=== PATIENT | female | born 2000 | race Caucasian/White ===

== ENCOUNTER 2024-08-31 19:24 | Emergency (ER) | payer SELFPAY ==
[2024-08-31 19:25] VITALS: BP 114/78; PULSE 103; RESP 16; TEMP 36.4; O2SAT 99
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
[2024-08-31 20:00] VITALS: BP 128/78; PULSE 85; RESP 18; O2SAT 99
== END 2024-08-31 20:00 | disposition home or self-care (01) ==
LOC: CHSED 19:56
PROVIDERS: Emergency Provider Family Medicine
DX: S09.90XA Unspecified injury of head, initial encounter (principal); W51.XXXA Accidental striking against or bumped into by another person, initial encounter
CPT/HCPCS: 99283

== ENCOUNTER 2025-02-13 22:40 | Emergency (ER) | payer SELFPAY ==
--- OUTSIDE RECORDS SUMMARY | 2025-02-13 22:43 | XMS_ITS | Clinical Summary ---
Author Organization [employer] [facility] Address [address] [place] [address] Care Team Providers Care Survey Project Manager Name Role Phone Unavailable Primary Care Provider Unavailabl e Source Comments [facility],non-owned Affiliates and Associated Physician Practices is amultiple site organization consisting of ambulatory clinics and hospital sitesin [place], [place], [place] and [place]. This disclosure is being madepursuant to the Care Everywhere program and may not contain all information available regarding this patient. Last updated [email or web address] Allergies Active Allergy Reactions Criticality Noted Date Comments Naproxen Vomiting Medium 10/14/2018 Sulfur Itching,Swelling 09/10/2021 Medications * This document contains information received from the source organization and may not represent a complete record from that organization. * Be aware that medications may not be up to date on this document. Alwaysverify current medications with the patient. hydrOXYzine HCl (ATARAX) 50 MG tablet Take 1 (one) tablet by mouth 2 times daily as needed (anxiety) 60 tablet 1 2 Active HYDROcodone-alex taminophen (Ironwood) 5-325 MG tablet Take 1 (one) tablet by mouth every 6 hours as needed for Pain 12 tablet 2 Active Additional Information Patient not taking.Reported on 01/13/2025 ondansetron (Zofran) 4 MG tablet Take 1 (one) tablet by mouth every 6 hours as needed for Nausea/Vomiting 10 tablet 2 Active chlorhexidine (Peridex) 0.12 % solution Swish and spit 2 times daily 473 mL 2 Active ketorolac (Toradol) 10 MG tablet Take 1 (one) tablet by mouth every 6 hours as needed for Pain 20 tablet 5 Active ondansetron, disintegrating, (Zofran ODT) 4 MG tablet Take 1 (one) tablet by mouth every 6 hours as needed for Nausea/Vomiting Allow tablet to dissolve on the tongue 20 tablet 5 Active venlafaxine XR 24hr (Effexor XR) 150 MG capsule Take 1 tablet by mouth daily. Will need appointment before additional refills allowed. 4 Active lamoTRIgine (LaMICtal) 100 MG tablet Take 1 (one) tablet by mouth 2 times daily Active hydrOXYzine HCl (Atarax) 50 MG tabletIndicatio ns:Anxiety Take 1 (one) tablet by mouth 2 times daily as needed (Anxiety) Reasons: Feeling Anxious 60 tablet 5 Active venlafaxine XR 24hr (Effexor XR) 150 MG capsule Take 1 (one) capsule by mouth once daily 30 capsule 5 Active busPIRone (Buspar) 5 MG tablet Take 1 (one) tablet by mouth 2 times daily Active mirtazapine (Remeron) 15 MG tablet Take 1 (one) tablet by mouth at bedtime Active propranolol (Inderal) 10 MG tabletIndicatio ns:Anxiety Take 1 (one) tablet by mouth once daily as needed Reasons: Feeling Anxious Active Active Problems Problem Noted Date Diagnosed Date Generalized anxiety disorder 09/10/2021 Recurrent major depressive disorder 09/10/2021 Resolved Problems Problem Noted Date Diagnosed Date Resolved Date Abdominal pain, right lower quadrant 04/27/2008 09/10/2021 Encounters Date Type Department Care Team Description 01/13/2025 12:25 PM CDT - 01/13/2025 5:44 PM CDT Emergency ER at [address] [address] Jai Donovan MD Schupack, Brett, DO Left foot pain; MDD (major depressive disorder), recurrent severe, 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 (F LUZONE; FLULAVAL; FLUARIX; AFLURIA QUADRIVALENT; 6MO+), 0.5 ML (IIV4) 09/10/2021 Family History Medical History Relation Name Comments Blood Clots Mother Relation Name Status Comments Brother Alive Father Alive Mother Alive Sister Alive Social History Tobacco Use Types Packs/Day Years Used Date Smoking Tobacco: Never Smokeless Tobacco: Never Alcohol Use Standard Drinks/Week Comments Yes 0 (1 standard drink = 0.6 oz pur e alcohol) AUDIT-C Answer Date Recorded Q1: How often do you have a drink containing alcohol? 4 or more times a week 01/13/2025 Q2: How many drinks containi ng alcohol do you have on a typical day when you are drinking? 3 or 4 Q3: How often do you have si x or more drinks on one occasion? 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 Gender Identity Not on file Sexual Orientation Not on file Last Filed Vital Signs Vital Sign Reading Time Taken Comments Blood Pressure 119/81 01/13/2025 12:19 PM CDT Pulse 75 01/13/2025 12:19 PM CDT Temperature 37.1 C (98.7 F) 01/13/2025 12:19 PM CDT Respiratory Rate 16 01/13/2025 12:19 PM CDT Oxygen Saturation 98% 01/13/2025 12:19 PM CDT Inhaled Oxygen Concentration 0% 04/28/2008 2 :45 AM CDT Weight 59 kg (130 lb) 01/13/2025 12:13 PM CDT Height 167.6 cm (5' 6) 01/13/2025 12:13 PM CDT Body Mass Index 20.98 01/13/2025 12:13 PM CDT Plan of Treatment Health Maintenance Due Date Last Done Comments HIV SCREENING 2013 HPV VACCINE (1 - 3-dose series) 2013 HEPATITIS C SCREENING 06/03/2016 DTAP/TDAP/TD VACCINES (1 - Tdap) 2017 HEPATITIS B VACCINE (1 of 3 - 19+ 3-dose series) 2017 COVID-19 VACCINE (2023-2 5 season) 2024 07/26/2021, 12/26/2020, 12/05/2020 INFLUENZA VACCINE (Season Ended) 2025 09/10/2021, 06/14/2008 PAP SMEAR 12/16/2025 12/16/2022 ZOSTER VACCINE (1 of 2) 2048 DEPRESSION SCREENING Completed 01/13/2025, 08/16/2022, 04/08/2022 HIB VACCINE Aged Out No longer eligi ble based on patient's age to complete this topic MENINGOCOCCAL (Group B) VACCINE SHARED DECISION-MAKING Aged Out No longer eligible based on patient's age to complete this topic MENINGOCOCCAL GROUPS A/C/Y/W VACCINE Aged Out No longer eligible b ased on patient's age to complete this topic PNEUMOCOCCAL VACCINE Aged Out No long er eligible based on patient's age to complete this topic Procedures Procedure Name Priority Date/Time Associated Diagnosis Comments XR FOOT LEFT 3VW OR MORE STAT 01/13/2025 12:58 PM CDT Left foot pain from Last 3 Months Results * XR Foot Left 3Vw or More (01/13/2025 12:58 PM CDT) Anatomical Region Laterality Modality Ankle / Foot Computed Radiogr aphy 01/13/2025 1:12 PM CDT Impressions 01/13/2025 1:13 PM CDT IMPRESSION: No fracture or malalignment. > Interpreting Provider: Robert Olivas MD on 01/13/2025 1:13 PM Narrative 01/13/2025 1:13 PM CDT PROCEDURE: XR FOOT LEFT 3VW OR MORE, DATE/TIME OF EXAM: 01/13/2025 12:58 PM, LOCATION [facility] INDICATION: M79.672: Pain in left foot ADDITIONAL CLINICAL INFORMATION: Ordering Provider Reason For Exam: Technologist Note: Additional: Twisting injury on trampoline, foot pain COMPARISON: None. FINDINGS: No metatarsal fracture. No phalanx fracture. The metatarsal phalangeal alignment is normal. The metatarsal midfoot bony structures are normal. No fifth proximal metatarsal fracture. No lateral calcaneal avulsion. Small peroneal longus ossicle. No ankle joint effusion. There is some soft tissue swelling over the dorsum of the foot midfoot but no fracture identified. Procedure Note Robert Olivas MD - 01/13/2025 PROCEDURE: XR FOOT LEFT 3VW OR MORE, DATE/TIME OF EXAM: 2:58 PM, LOCATION [facility] INDICATION: M79.672: Pain in left foot ADDITIONAL CLINICAL INFORMATION: Ordering Provider Reason For Exam: Technologist Note: Additional: Twisting injury on trampoline, foot pain COMPARISON: None. FINDINGS: No metatarsal fracture. No phalanx fracture. The metatarsal phalangeal alignment is normal. The metatarsal midfoot bony structuresare normal. No fifth proximal metatarsal fracture. No lateral calcaneal avulsion. Small peroneal longus ossicle. No ankle joint effusion. Thereis some soft tissue swelling over the dorsum of the foot midfoot but no fracture identified. IMPRESSION: No fracture or malalignment. > Interpreting Provider: Robert Olivas MD on 01/13/2025 1:13 PM Jai Donovan MD DIAGNOSTIC IMAGING ORDERABLES F inal Result from Last 3 Months Insurance (Home) [address] [place], [place] [id number] [facility] (Home) [address] [place] [phone] [place] MED[place] - [facility], [facility] [employer]TH
--- OUTSIDE RECORDS SUMMARY | 2025-02-13 22:43 | XMS_ITS | Clinical Summary ---
Author Organization [employer] [address] [place] [address] Address [address] [place] [address] Care Team Providers Care Tennis Desk Team Member Name Role Phone Tameka Worthy MD Primary Care Provider Allergies Active Allergy Reactions Criticality Noted Date Comments Naproxen Nausea and Vomiting Medium 10/14/2018 Sulfur Itching,Swelling Low 09/10/2021 Medications albuterol sulfate HFA 90 mcg/actuation aerosol inhalerIndicatio ns:Wheezing Take 2 Puffs by inhalation every 6 hours as needed for Shortness of Breath or Wheezing. 8.5 Gram 11 3 Active doxycycline hyclate (VIBRAMYCIN) 100 mg tabletIndication s:Hydradenitis Take 1 Tablet (100 mg) by mouth 2 times daily. 60 Tablet 1 3 Active ibuprofen (MOTRIN) 600 mg tabletIndication s:Dysmenorrhea Take 1 Tablet (600 mg) by mouth every 8 hours as needed for Pain, Mild. 180 Tablet 1 3 Active pantoprazole (PROTONIX) 20 mg Tablet, Delayed Release (E.C.)Indication s:Bipolar 1 disorder (CMS/HCC) Take 1 Tablet (20 mg) by mouth 2 times daily. 60 Tablet 3 3 Active mirtazapine (REMERON) 15 mg tabletIndication s:Sexual dysfunction in female Take 1 Tablet (15 mg) by mouth daily at bedtime. 30 Tablet 3 3 Active lamoTRIgine (LaMICtal) 100 mg tabletIndication s:Bipolar 1 disorder (CMS/HCC) Take 1 Tablet (100 mg) by mouth 2 times daily. Start after completing titration 60 Tablet 11 3 Active LORazepam (ATIVAN) 0.5 mg tabletIndication s:Bipolar 1 disorder (CMS/HCC) Take 1 Tablet (0.5 mg) by mouth 1 time daily as needed for Anxiety. 30 Tablet 3 Active venlafaxine (EFFEXOR XR) 150 mg Extended Release 24 hour capsuleIndicatio ns:Bipolar 1 disorder (CMS/HCC) Take 1 tablet by mouth daily. Will need appointment before additional refills allowed. 90 Capsule 4 Active Active Problems Problem Noted Date Diagnosed Date Bipolar 1 disorder 12/14/2022 Sexual dysfunction in female 12/14/2022 Wheezing 12/14/2022 Generalized anxiety disorder 09/10/2021 Recurrent major depressive disorder 09/10/2021 Immunizations Immunization Administration Dates Next Due (ACTHIB/HIBERIX)(2 MOS-5 YRS /6 WKS-4 YRS) HAEMOPHILUS INFLUENZAE TYPE B VACCINE (HIB), PRP-T CONJUGATE, 4 DOSE, 0.5 ML IM 09/23/1999,1998,1998 (DAPTACEL)(6 WKS-6 YRS) DIPH THERIA, TETANUS TOXOIDS, AND ACCELLULAR PERTUSSIS VACCINE (DTAP), 0.5ML, IM 10/24/1999,02/18/1999,1998,1998 (IPOL)(6 WKS AND UP) POLIOVI CARRIE VACCINE, INACTIVATED (IPV), 3 DOSE, SUBCUT OR IM 01/12/2006,09/23/1999,1998,1998 (M-M-R II/PRIORIX)(12 MO UP) MEASLES, MUMPS AND RUBELLA VIRUS VACCINE, 0.5 ML IM/SUBCUT 01/12/2006,09/23/1999 (PFIZER)(12 YR UP) COVID-19 VACCINE - EMERGENCY USE AUTHORIZATION, MRNA, [id number](PF) 30 MCG/0.3 ML IM SUSP 07/26/2021,12/26/2020,12/05/2020 (RECOMBIVAX HB/ENGERIX-B)(0- 19 YRS) HEPATITIS B VACCINE 5 MCG/0.5 ML OR 10 MCG/0.5 ML PED OR ADOL 3 DOSE (PF), IM 09/23/1999,1998,1998 (TDVAX)(7 YRS UP) TETANUS AN D DIPHTHERIA TOXOIDS, ADSORBED (2 LF OF TETANUS TOXOID AND 2 LF OF DIPHTHERIA TOXOID), 0.5ML (PF), IM 01/12/2006 (VARIVAX)(12 MOS UP)VARICELL A VIRUS VACCINE (PF) 0.5 ML, SUB CUT 05/11/2002 Hepatitis A Vaccine 01/12/2006 INFLUENZA VACCINE QUADRIVALE NT 6 MOS UP PF IM 09/10/2021 Influenza A (H1N1) Vaccine Nasal VFC 06/14/2008 Influenza Seasonal Unspecifi ed Formulation IM 09/10/2021 Influenza, Unspecified Formulation 06/14/2008 Family History Medical History Relation Name Comments Other Brother Blakina Cerebal Palsy Ovarian Cancer Maternal Grandmother Evelyn Singleton Uterine Cancer Maternal Grandmother Evelyn Singleton Bipolar Disorder Mother Lynne Villalobos Heart Disease Mother Lynne Villalobos heart attack Hemophilia Mother Lynne Villalobos Ovarian Cancer Mother Lynne Villalobos Relation Name Status Comments Brother Blakina Alive Father Alive Maternal Grandfather Maternal Grandmother Evelyn Singleton Alive Mother Lynne Villalobos Alive Paternal Grandfather Alive Paternal Grandmother Alive Sister Alive Social History Tobacco Use Types Packs/Day Years Used Date Smoking Tobacco: Former Cigarettes 0.5 4 0 08/30/2010 - 08/30/2014 Smokeless Tobacco: Never Tobacco Cessation:Counseling Given: Yes Alcohol Use Standard Drinks/Week Comments Yes 5 (1 standard drink = 0.6 oz pur e alcohol) less than once a month Comments No Sex and Gender Information Value Date Recorded Sex Assigned at Not on file 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 Gender Identity Not on file Sexual Orientation Not on file Last Filed Vital Signs Vital Sign Reading Time Taken Comments Blood Pressure 100/66 02/04/2023 10:09 AM CDT Pulse 74 02/04/2023 10:09 AM CDT Temperature 36.7 C (98.1 F) 05/27/2022 2:58 PM CDT Respiratory Rate 14 11/25/2022 4:49 PM CDT Oxygen Saturation 99% 02/04/2023 10:09 AM CDT Inhaled Oxygen Concentration - - Weight 57.2 kg (126 lb 3.2 oz) 02/04/2023 10:09 AM CDT Height 167.6 cm (5' 6) 02/04/2023 10:09 AM CDT Body Mass Index 20.37 02/04/2023 10:09 AM CDT Plan of Treatment Health Maintenance Due Date Last Done Comments DTAP/TDAP/TD VACCINES (6 - Tdap) 2009 01/12/2006, 10/24/1999, 02/18/1999, Additional history exists HPV VACCINES (1 - 3-dose series) 2013 INFLUENZA VACCINE (#1) 2024 09/10/2021, 2021 COVID-19 Vaccine (4 - 2023-2 5 season) 2024 07/26/2021, 12/26/2020, 12/05/2020 CERVICAL CANCER SCREENING 12/16/2025 PAP SMEAR 12/16/2025 12/16/2022 HPV/Cotest (21-29) 12/17/2027 12/16/2022 HPV/Cotest (30-65) 2028 12/16/2022 HEPATITIS B VACCINES Completed 09/23/1999, 1998, 1998 Procedures Procedure Name Priority Date/Time Associated Diagnosis Comments CERV/VAG CYTO SCREEN PAP W/HPV Routine 12/16/2022 12:00 AM CDT Cervical cancer screening from Last 3 Months or Most Recently Relevant to Health Maintenance Results * CERV/VAG CYTO SCREEN PAP W/HPV (12/16/2022 12:00 AM CDT) CLINICAL INFORMATION [facility] [place] Comment:None given LAST MENSTRUAL PERIOD [facility] Comment:[id number] PREV PAP: [facility] Comment:NONE GIVEN PREV BX: [facility] Comment:NONE GIVEN SOURCE [facility] Comment:Endocervix ADEQUACY: [facility] Comment: Satisfactory for evaluation. Endocervical/transformation zone component present. PAP INTERP [facility] Comment:Negative for intraep ithelial lesion or malignancy. COMMENT (PAP TEST) [facility] [place] Comment: This Pap test has been evaluated with computer assisted technology. INBOUND CUSTOMER SERVICE REPRESENTATIVE: [facility] [place] Comment: MVB, CT(ASCP) CT Screening Location: [place] [address] [place] [address] EXPLANATORY NOTE [facility] [place] Comment: EXPLANATORY NOTE: The Pap is a screening test for cervical cancer. It is not a diagnostic test and is subject to false negative and false positive results. It is most reliable when a satisfactory sample, regularly obtained, is submitted with relevant clinical findings and history, and when the Pap result is evaluated along with historic and current clinical information. HPV E6/E7 Not Detected Not Detected [facility] [place] Comment: Methodology: Formula Technician-Mediated Amplification This assay detects E6/E7 viral messenger RNA (mRNA) from 14 high-risk HPV types (16,18,31,33,35,39,45,51,52,56,58,59,66,68). Cervical sources are required for HPV testing. If a vaginal source from a patient who has had a total hysterectomy with removal of cervix was submitted, please contact the testing laboratory for alternative testing options. For additional information, please refer to http://education.MYOS/faq/AWO410e4 (This link if provided for information/ educational purposes only.) Test Performed at: [facility] [id number] [id number] Mayra RAMOS Genital SWAB OF ENDOCERVIX / Unknown 12/16/2022 12/16/2022 11:54 PM CDT Tameka Worthy MD PATHOLOGY/CYTOLOGY MERISSA POWER Final Result [facility] [phone] [facility] [id number] [id number] from Last 3 Months or Most Recently [place] [address] [facility] MEDICAID Care Teams Tennis Desk Team Member Relationship Specialty Start Date End Date Tameka Worthy MD PCP - General Family Practice 04/21/22
[2025-02-13 22:56] VITALS: BP 136/80; PULSE 121; RESP 14; TEMP 36.8; O2SAT 97
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
[2025-02-13 23:54] LABS: Hematocrit 37.7 % (35.0-49.0); Hemoglobin 12.3 g/dL (12.0-15.0); Mean Corpuscular HGB Conc 32.6 g/dL (32-36); Mean Corpuscular Hemoglobin 30.8 pg (27.0-31.0); Mean Corpuscular Volume 94.3 fL (78.0-102.0); Mean Platelet Volume 9.9 fl (9.2-11.8); Platelet Count Result 253 K/mm3 (150-420); Red Cell Distribution Width 12.1 % (11.6-14.4); White Blood Count 8.7 K/mm3 (4.8-10.8)
[2025-02-14 00:05] LABS: Acetaminophen < 10 ug/mL (10-30); Salicylate < 1.0 mg/dL (2-20)
[2025-02-14 00:10] LABS: Alanine Aminotransferase 18 U/L (6-35); Anion Gap 8 mmol/L (4-12); Aspartate Amino Transferase 32 U/L (14-36); Bilirubin,Total 0.3 mg/dL (0.2-1.3); Blood Urea Nitrogen 12 mg/dL (7-17); Calcium 8.9 mg/dL (8.4-10.2); Carbon Dioxide 23 mmol/L (22-30); Chloride 115 mmol/L (98-107); Estimated CRCL calculation 61 ml/min; Estimated Glomerular Filt Rate 54; Ethanol 162 mg/dL (<10); Glucose 76 mg/dL (65-110); Osmolality Calculated 300 mOsm/kg (285-295); Potassium 4.4 mmol/L (3.4-5.0); Sodium 146 mmol/L (137-145)
[2025-02-14 00:11] LABS: Albumin Level 4.6 g/dL (3.5-5.1); Alkaline Phosphatase 69 U/L (38-126); Total Protein 7.4 g/dL (6.3-8.2)
[2025-02-14 00:29] LABS: Influenza A QL RT-PCR Negative (Negative); Influenza B QL RT-PCR Negative (Negative); RSV RNA, RT-PCR Negative (Negative); SARS-CoV-2 RNA PCR Negative (Negative)
[2025-02-14 01:41] LABS: Add Urine Microscopic? YES; Appearance Urine Clear (Clear); Bilirubin Urine Negative (Negative); Blood Urine Negative (Negative); Color Urine Light Yellow (Yellow); Glucose Urine UA Negative (Negative); Ketones Urine Trace (Negative); Leukocyte Esterase Ur 1+ (Negative); Nitrate Urine Negative (Negative); Protein Urine Trace (Negative); Specific Grav Ur 1.025 (1.010-1.020); pH Urine 6.5 (5.0-8.0)
[2025-02-14 01:47] LABS: Bacteria Urine 1+ /hpf; RBC Urine 0-2 /hpf (0-2); Squamous Epithelial Cell Urine Moderate /hpf (Few)
--- OUTSIDE RECORDS SUMMARY | 2025-02-14 01:47 | XMS_ITS | Clinical Summary ---
Author Organization [facility] Address [address] [place] [address] Phone Care Team Providers Care Aerotriangulation Specialist Name Role Phone Provider, None Primary Care Provider Unavailabl e Allergies No known active allergies Medications lidocaine viscous (XYLOCAINE) 2 % Solution 5 mL by Mouth/Throa t route every 2 hours as needed for Pain (swish and spit as needed for pain). 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 Gender Identity Not on file Sexual Orientation Not on file Last Filed Vital Signs Vital Sign Reading Time Taken Comments Blood Pressure 111/72 11/10/2017 4:34 PM CDT Pulse 100 11/10/2017 4:34 PM CDT Temperature 37.5 C (99.5 F) 11/10/2017 4:34 PM CDT Respiratory Rate 16 11/10/2017 5:09 PM CDT Oxygen Saturation 98% 11/10/2017 4:34 PM CDT Inhaled Oxygen Concentration - - Weight 59 kg (130 lb) 11/10/2017 4:34 PM CDT Height 167.6 cm (5' 6) 11/10/2017 4:34 PM CDT Body Mass Index 20.98 11/10/2017 4:34 PM CDT Plan of Treatment Not on file Insurance MEDICAID [place] Care Teams Aerotriangulation Specialist Relationship Specialty Start Date End Date Provider, None [place] PCP - General 11/10/17
--- OUTSIDE RECORDS SUMMARY | 2025-02-14 01:47 | XMS_ITS | Clinical Summary ---
Author Organization [facility] Address [facility] [place] [address] Care Team Providers Care Slag Wheeler Name Role Phone None, Provider MD Primary Care Provider Unavaila ble Allergies Active Allergy Reactions Criticality Noted Date Comments Elemental Sulfur Itching,Swelling Low 09/10/2021 Naproxen Vomiting Medium 10/14/2018 Medications venlafaxine XR (EFFEXOR-XR) 150 MG 24 hr capsule Take 1 tablet by mouth daily. Will need appointment before additional refills allowed. 4 Active lamoTRIgine (LAMICTAL) 100 MG tablet Take 1 tablet (100 mg total) by mouth 2 (two) times daily. Active Active Problems No known active problems Family History Relation Status Comments Father Alive Mother Alive Social History Tobacco Use Types Packs/Day Years Used Date Smoking Tobacco: Former Cigarettes 1 - 05/2018 Smokeless Tobacco: Never Comments:vapes now Alcohol Use Standard Drinks/Week Comments No 0 (1 standard drink = 0.6 oz pur e alcohol) AUDIT-C Answer Date Recorded Frequency of Alcohol Consumption Never 10/17/2018 Average Number of Drinks Not on file 019 Frequency of Binge Drinking Not on file 09/30 Comments No Sex and Gender Information Value Date Recorded Sex Assigned at Female 10/13/2024 12:26 PM VP OF PRODUCT Legal Sex Female 10:34 PM VP OF PRODUCT Gender Identity Not on file Sexual Orientation Not on file Last Filed Vital Signs Vital Sign Reading Time Taken Comments Blood Pressure 133/77 10/13/2024 12:23 PM VP OF PRODUCT Pulse 83 10/13/2024 12:23 PM VP OF PRODUCT Temperature 36.9 C (98.4 F) 10/13/2024 12:23 PM VP OF PRODUCT Respiratory Rate 15 10/13/2024 12:23 PM VP OF PRODUCT Oxygen Saturation 97% 10/13/2024 12:23 PM VP OF PRODUCT Inhaled Oxygen Concentration - - Weight 68 kg (150 lb) 10/13/2024 12:23 PM VP OF PRODUCT Height 157.5 cm (5' 2) 10/13/2024 12:23 PM VP OF PRODUCT Body Mass Index 27.44 10/13/2024 12:23 PM VP OF PRODUCT Plan of Treatment Health Maintenance Due Date Last Done Comments Cervical Cancer Screening Pap Smear (Age 21 to 29) Every 3 Years 1998 Cervical Cancer Screening 1998 Annual Physical 2001 Hepatitis C 2016 DTaP, Tdap and Td Vaccines (7 - Td or Tdap) 03/12/2020 03/12/2010, 10/29/2006, 01/12/2006, Additional history exists COVID-19 Vaccine ( season) 2024 07/26/2021, 12/26/2020, 12/05/2020 Hepatitis B Vaccines Completed 09/23/1999, 09/23/1999, 1998, Additional history exists HPV Vaccines Completed 04/13/2013, 05/01, 03/12/2010 Meningococcal Vaccine Completed 04/09/2016, 010 Meningococcal B Vaccine Aged Out No l onger eligible based on patient's age to complete this topic Pneumococcal Vaccine: Pediatrics (0 to 5 Years) and At-Risk Patients (6 to 49 Years) Aged Out No longer eligible based on patient's age to complete this topic RSV Immunizations Under 20 Months Aged Out No longer eligible based on patient's age to complete this topic Insurance DIVISION Care Teams Slag Wheeler Relationship Specialty Start Date End Date None, Provider, PCP - General UNKNOWN PHYSICIAN SPECIALTY 10/13/24
--- OUTSIDE RECORDS SUMMARY | 2025-02-14 01:47 | XMS_ITS | Clinical Summary ---
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 Endocervical/transformation zone component present. PAP INTERP [facility] Comment:Negative for intraep ithelial lesion or malignancy. COMMENT (PAP TEST) [facility] Comment: This Pap test has been evaluated with computer assisted technology. CRIMINAL INVESTIGATIVE AGENT: [facility] Comment: MVB, CT(ASCP) CT Screening Location: [place] [address] [place] [address] EXPLANATORY NOTE [facility] [place] Comment: EXPLANATORY NOTE: The Pap is a [...] information. HPV E6/E7 Not Detected Not Detected [facility] [place] Comment: Methodology: National Sales Consultant-Mediated Amplification This assay detects E6/E7 viral messenger RNA (mRNA) from 14 high-risk HPV types (16,18,31,33,35,39,45,51,52,56,58,59,66,68). Cervical sources are required for HPV testing. If a vaginal source from a patient who has had a total hysterectomy with removal of cervix was submitted, please contact the testing laboratory for alternative testing options. For additional information, please refer to http://education.[employer]/faq/OEM080z9 (This link if provided for information/ educational purposes only.) Test Performed at: [facility] [id number] [id number] Mayra RAMOS Genital SWAB OF ENDOCERVIX / Unknown 12/16/2022 12/16/2022 11:54 PM CDT Tameka Worthy MD PATHOLOGY/CYTOLOGY MERISSA POWER Final Result [facility] [phone] [facility] [address] [id number] from Last 3 Months or Most Recently [place] [address] [facility] MEDICAID Care Teams Director Consumer Relationship Specialty Start Date End Date Tameka Worthy MD PCP - General Family Practice 04/21/22
--- OUTSIDE RECORDS SUMMARY | 2025-02-14 01:47 | XMS_ITS | Clinical Summary ---
Author Organization [facility] Address [address] [place] [address] Care Team Providers Care Industrial Sales Engineer Name Role Phone Unavailable Primary Care Provider Unavailabl e Source Comments [facility],non-owned Affiliates and Associated Physician Practices is amultiple site organization consisting of ambulatory clinics and hospital sitesin [place], [place], [place] and [place]. This disclosure is being madepursuant to the Care Everywhere program and may not contain all information available regarding this patient. 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 Gender Identity Not on file Sexual Orientation [...] DATE/TIME OF EXAM: 01/13/2025 12:58 PM, LOCATION [facility] INDICATION: M79.672: Pain in left foot ADDITIONAL [...] MORE, DATE/TIME OF EXAM: 2:58 PM, LOCATION [facility] INDICATION: M79.672: Pain in left foot ADDITIONAL [...] from Last 3 Months Insurance (Home) [address] [place], [place] [address] [facility] (Home) [address] [place] [phone] [place] MED[place] - [facility] PLAN ANTH
--- OUTSIDE RECORDS SUMMARY | 2025-02-14 01:47 | XMS_ITS | Encounter Summary ---
Author Organization [facility] Address [facility] [place] [address] Care Team Providers Care Bath House Attendant Name Role Phone Ronni Syed MD Primary Care Provider [phone] None, Provider MD Primary Care Provider Yaniraa ble Encounter Details Date Type Department Care Team (Late st Contact Info) Description 02/04/2019 Abstract [facility] CONVERSION [address] [place] [address] , Generic Conversion, Social History Tobacco Use Types Packs/Day Years [...] Binge Drinking Not on file 09/30 Comments Unknown Sex and Gender Information Value Date Recorded Sex Assigned at Female 10/13/2024 12:26 PM PATTERNMAKER SAMPLE Legal Sex Female 10:34 PM PATTERNMAKER SAMPLE Gender Identity Not on file Sexual Orientation Not on file documented as of this encounter Plan of Treatment Not on file documented as of this encounter Visit Diagnoses Not on filedocumented in this encounter Care Teams Bath House Attendant Relationship Specialty Start Date End Date Ronni Syed MD [address] [place] [id number] PCP - General FAMILY PRACTICE 10/20/18 10/12/24 None, ProviderMD PCP - General UNKNOWN PHYSICIAN SPECIALTY 10/13/24 documented as of this encounter
--- OUTSIDE RECORDS SUMMARY | 2025-02-14 01:47 | XMS_ITS | Encounter Summary ---
Author Organization [facility] Address [facility] [place] [address] Care Team Providers Care Building Mover Name Role Phone Ronni Syed MD Primary Care Provider [phone] None, Provider Primary Care Provider Unavaila ble Encounter Details Date Type Department Care Team (Late st Contact Info) Description 11/13/2017 Abstract [facility] CONVERSION [address] [place] [address] , Generic Conversion, Social History Tobacco Use Types Packs/Day Years Used Date Smoking Tobacco: Never Assessed Comments Unknown Sex and Gender Information Value Date Recorded Sex Assigned at Female 10/13/2024 12:26 PM TRACK COACH Legal Sex Female 10:34 PM TRACK COACH Gender Identity Not on file Sexual Orientation Not on file documented as of this encounter Plan of Treatment Not on file documented as of this encounter Visit Diagnoses Not on filedocumented in this encounter Care Teams Building Mover Relationship Specialty Start Date End Date Ronni Syed MD [address] [place] [address] PCP - General FAMILY PRACTICE 10/20/18 10/12/24 None, ProviderMD PCP - General UNKNOWN PHYSICIAN SPECIALTY 10/13/24 documented as of this encounter
[2025-02-14 02:04] LABS: Amphetamine Screen Urine Negative (Negative); Barbiturate Screen Urine Negative (Negative); Benzodiazepines Screen Urine Negative (Negative); Cannabinoid Screen Urine Positive (Negative); Cocaine Screen Urine Negative (Negative); Methadone Screen Urine Negative (Negative); Opiate Screen Urine Negative (Negative); Phencyclidine Screen Urine Negative (Negative)
[2025-02-14] MEDS: lamoTRIgine 100 MG TABLET PO (03:22)
[2025-02-14] MEDS: busPIRone HCL 5 MG TABLET PO (03:22)
[2025-02-14] MEDS: MIRTAZAPINE 15 MG TABLET PO (03:22)
[2025-02-14 05:36] VITALS: BP 112/63; PULSE 67; RESP 18; O2SAT 98
== END 2025-02-14 05:36 | disposition home or self-care (01) ==
PROVIDERS: Emergency Provider Emergency Medicine; PCP Family Medicine
DX: F32.1 Major depressive disorder, single episode, moderate (principal); Z20.822 Contact with and (suspected) exposure to COVID-19
CPT/HCPCS: 36415; 80053; 80143; 80179; 80307; 81001; 82077; 85027; 87637; 99284; A9270